=== PATIENT | male | born 1995 | race Caucasian/White ===

== ENCOUNTER 2016-06-28 19:25 | Emergency (ER) | payer OTHER ==
[~2016-06-28] VITALS: Ht 175.3 cm; Wt 70.0 kg
[2016-06-28 19:39] VITALS: Ht 175.3 cm; Wt 70.0 kg
[2016-06-28] MEDS ORDERED: IBUP-1542 PO (20:08)
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
--- NOTE | 2016-06-28 20:17 | RADRPT ---
PROCEDURE: Left wrist series CLINICAL INDICATION: Left wrist pain TECHNIQUE: AP, oblique, and lateral views of the left wrist were obtained. COMPARISON: FINDINGS: No acute fracture or dislocations are seen. The osseous structures are well mineralized. The artic ular surfaces are normal. No soft tissue abnormalities are seen. IMPRESSION: Unremarkable left wrist series. RPTAT: HPNM Physician Raúl Date Time Electronically viewed and signed by Néstor Alves Physician on 06/28/2016 20:17 /
== END 2016-06-28 20:39 | disposition home or self-care (01) ==
LOC: FTE 19:25
DX: S69.92XA Unspecified injury of left wrist, hand and finger(s), initial encounter (principal); S10.93XA Contusion of unspecified part of neck, initial encounter; V49.40XA Driver injured in collision with unspecified motor vehicles in traffic accident, initial encounter
CPT/HCPCS: 73110; Z7502

== ENCOUNTER 2019-01-29 13:15 | Emergency (ER) | payer OTHER ==
[~2019-01-29] VITALS: Ht 180.3 cm; Wt 50.6 kg
[~2019-01-29 13:15] MED LIST: IBUP-1542 PO
[2019-01-29 13:29] VITALS: Ht 180.3 cm; Wt 50.6 kg
[2019-01-29] MEDS ORDERED: LIDOCAINE 2% (MDV) 20 ML INJ INJ STA (15:57)
[2019-01-29] MEDS ORDERED: IBUPROFEN 800 MG TAB PO STA (15:57)
[2019-01-29 18:03] VITALS: BP 120/56; PULSE 75; RESP 17
== END 2019-01-29 18:04 | disposition home or self-care (01) ==
LOC: FTE 13:15
DX: S01.81XA Laceration without foreign body of other part of head, initial encounter (principal); V00.131A Fall from skateboard, initial encounter; Y92.9 Unspecified place or not applicable
CPT/HCPCS: 12011; Z7502; Z7610